=== PATIENT | male | born 1985 | race Caucasian/White ===

== ENCOUNTER 2023-03-02 11:30 | Emergency (ER) | payer OTHER ==
[2023-03-02 11:44] VITALS: BP 137/92; PULSE 96; RESP 20; TEMP 100; BMI 28.7
[2023-03-02] MEDS ORDERED: DEXAMETHASONE SOD PHOSPHATE 10 MG/1 ML VIAL PO ONE (12:45)
[2023-03-02] MEDS ORDERED: AMOXICILLIN 500 MG CAPSULE (FP) PO ONE (12:45)
[2023-03-02] MEDS ORDERED: DEXAMETHASONE SOD PHOSPHATE 10 MG/1 ML VIAL ONE (12:49)
[2023-03-02] MEDS ORDERED: AMOXICILLIN 500 MG CAPSULE (FP) ONE (12:49)
== END 2023-03-02 13:02 | disposition home or self-care (01) ==
LOC: JERFT 11:30
PROC: 3E023GC Introduction of Other Therapeutic Substance into Muscle, Percutaneous Approach (ICD-10-PCS; principal; 2023-03-02)
DX: J02.0 Streptococcal pharyngitis (principal)
CPT/HCPCS: 87651; 99284-25; J1100

== ENCOUNTER 2023-08-06 15:03 | Emergency (ER) | payer SELFPAY ==
[2023-08-06 15:14] VITALS: BP 129/90; PULSE 81; RESP 18; TEMP 99; BMI 28.7
[2023-08-06] MEDS ORDERED: FAMOTIDINE 20 MG/50 ML IVPB 20 MG/50 ML MG IVPB ONE ×2 (16:36→16:59)
[2023-08-06] MEDS ORDERED: SODIUM CHLORIDE 0.9% 500 ML INFUS.BAG IV ONE (16:36)
[2023-08-06] MEDS ORDERED: ACETAMINOPHEN 1000 MG/100 ML BAG IVPB ONE (16:37)
[2023-08-06] MEDS ORDERED: ACETAMINOPHEN INJECTION 100 ML IVPB ONE (17:05)
[2023-08-06 17:28] LABS: BASO % 0.5 % (0-2.0); EOS % 0.1 % (0-4.5); HEMATOCRIT 38.4 % (35.4-49); HEMOGLOBIN 12.6 GM/dL (11.7-16.9); LYMPH % 21.8 % (8-40); MCH 27.7 pg (25.7-33.7); MCHC 32.7 g/dl (32.0-35.9); MEAN CELL VOLUME 84.5 fl (80-96); MEAN PLT VOLUME 6.9 fl (7.5-11.1); MONO % 10.3 % (3.8-10.2); NEUT % 67.3 % (42.8-82.8); PLATELET COUNT 173 10^3/uL (134-434); RBC 4.55 M/mm3 (4.00-5.60); RDW 12.7 % (11.9-15.9); WHITE BLOOD COUNT 7.1 K/mm3 (4.0-10.0)
[2023-08-06 17:49] LABS: CALCIUM 8.4 mg/dL (8.5-10.1)
[2023-08-06 17:50] LABS: ALBUMIN 3.6 g/dl (3.4-5.0); BLOOD UREA NITROGEN 12.8 mg/dL (7-18)
[2023-08-06 17:52] LABS: CREATININE 0.9 mg/dL (0.55-1.3)
[2023-08-06 17:54] LABS: BILIRUBIN,TOTAL 0.7 mg/dL (0.2-1)
== END 2023-08-06 19:04 | disposition home or self-care (01) ==
LOC: JER 15:03
PROC: 3E033GC Introduction of Other Therapeutic Substance into Peripheral Vein, Percutaneous Approach (ICD-10-PCS; principal; 2023-08-06)
PROC: 3E033NZ Introduction of Analgesics, Hypnotics, Sedatives into Peripheral Vein, Percutaneous Approach (ICD-10-PCS; 2023-08-06)
DX: R50.9 Fever, unspecified (principal); R05.9 Cough, unspecified; R09.81 Nasal congestion; J10.1 Influenza due to other identified influenza virus with other respiratory manifestations; Z20.822 Contact with and (suspected) exposure to COVID-19
CPT/HCPCS: 0241U-QW; 36415; 80053; 83690; 85025; 99284-25

== ENCOUNTER 2024-03-11 12:19 | Emergency (ER) | payer OTHER ==
[2024-03-11 12:29] VITALS: BP 130/86; PULSE 96; RESP 20; TEMP 98.5; BMI 27.7
[2024-03-11] MEDS ORDERED: LIDOCAINE 4% PATCH TP ONE (12:56)
[2024-03-11] MEDS ORDERED: CYCLOBENZAPRINE HCL 10 MG TABLET (FP) ONE (12:57)
[2024-03-11] MEDS ORDERED: ACETAMINOPHEN 500 MG TABLET (FP) ONE (12:57)
[2024-03-11] MEDS ORDERED: IBUPROFEN 600 MG TABLET (FP) PO ONE (12:57)
[2024-03-11] MEDS: CYCLOBENZAPRINE HCL 10 MG TABLET (FP) PO ONE (13:02)
[2024-03-11] MEDS: ACETAMINOPHEN 500 MG TABLET (FP) PO ONE (13:02)
[2024-03-11] MEDS: IBUPROFEN 600 MG TABLET (FP) PO ONE (13:02)
[2024-03-11] MEDS: LIDOCAINE 4% PATCH TP ONE (13:02)
[2024-03-11] MEDS ORDERED: LIDOCAINE PATCH REMOVAL MC ONE (22:00)
== END 2024-03-11 13:42 | disposition home or self-care (01) ==
LOC: JERFT 12:19
DX: S16.1XXA Strain of muscle, fascia and tendon at neck level, initial encounter (principal); S46.912A Strain of unspecified muscle, fascia and tendon at shoulder and upper arm level, left arm, initial encounter; X50.9XXA Other and unspecified overexertion or strenuous movements or postures, initial encounter
CPT/HCPCS: 93005; 93010; 99283-25

== ENCOUNTER 2025-03-25 17:45 | Emergency (ER) | payer OTHER ==
[2025-03-25 17:50] VITALS: BMI 28.7
[2025-03-25] MEDS ORDERED: ACETAMINOPHEN INJECTION 100 ML ONE (18:29)
[2025-03-25] MEDS: SODIUM CHLORIDE 0.9% 500 ML INFUS.BAG IV ONE (18:50)
[2025-03-25] MEDS: ACETAMINOPHEN 1000 MG/100 ML BAG IVPB ONE (18:51)
[2025-03-25 18:55] LABS: ABSOLUTE IMMATURE GRANULOCYTES 0.03 x10^3/uL (0.0-0.031); BASOPHILS # 0.05 x10^3/uL (0.01-0.08); EOSINOPHIL % 1.6 % (0.8-7.0); EOSINOPHILS # 0.13 x10^3/uL (0.04-0.54); MCHC 32.5 g/dl (32.3-36.5); MEAN CELL VOLUME 85.0 fl (79.0-92.2); MEAN PLT VOLUME 8.5 fl (9.4-12.4); MONOCYTE # 0.58 x10^3/uL (0.30-0.82); MONOCYTE % 7.0 % (5.3-12.2); RDW 11.9 % (12.0-15.6)
[2025-03-25 18:56] LABS: URINE APPEARANCE CLEAR; URINE BILIRUBIN NEGATIVE (NEGATIVE); URINE COLOR YELLOW; URINE GLUCOSE (UA) NEGATIVE (NEGATIVE); URINE KETONE NEGATIVE (NEGATIVE); URINE LEUK ESTERASE NEGATIVE (NEGATIVE); URINE NITRITE NEGATIVE (NEGATIVE); URINE PROTEIN NEGATIVE (NEGATIVE); URINE UROBILINOGEN 0.2 mg/dL (0.2-1.0)
[2025-03-25 19:29] LABS: CO2 26.0 mmol/L (21-32)
[2025-03-25 19:30] LABS: GLUCOSE,RANDOM 188.0 mg/dL (74-106)
[2025-03-25 19:32] LABS: SGOT/AST 60.0 U/L (15-37); SGPT/ALT 119.0 U/L (13-61)
[2025-03-25 19:33] LABS: CREATININE 1.3 mg/dL (0.55-1.3)
[2025-03-25 19:34] LABS: TOT PROT 7.2 g/dl (6.4-8.2)
[2025-03-25 19:35] LABS: ALK PHOS 59.0 U/L (45-117)
[2025-03-25] MEDS ORDERED: MAGNESIUM 1GM/D5W - 1 GM/100 ML IVPB IVPB ONE (19:51)
[2025-03-25] MEDS ORDERED: POTASSIUM CHLORIDE ORAL LIQUID 20 MEQ/15 ML ONE (19:51)
[2025-03-25] MEDS: POTASSIUM CHLORIDE ORAL LIQUID 20 MEQ/15 ML PO ONE (19:59)
[2025-03-25] MEDS: MAGNESIUM 1GM/D5W - 1 GM/100 ML IVPB IVPB ONE (20:00)
[2025-03-25 20:57] VITALS: BP 137/87; PULSE 88; RESP 16; TEMP 97.9
[2025-03-25 23:51] LABS: HIV INTERPRETATION NEGATIVE (NEGATIVE)
[2025-03-26 20:22] LABS: HCV DIAGNOSTIC IN-HOUSE W/RFLX NON-REACTIVE (NONREACTIVE)
== END 2025-03-25 20:58 | disposition home or self-care (01) ==
LOC: JER 17:45
PROC: 3E033GC Introduction of Other Therapeutic Substance into Peripheral Vein, Percutaneous Approach (ICD-10-PCS; principal; 2025-03-25)
PROC: 3E033NZ Introduction of Analgesics, Hypnotics, Sedatives into Peripheral Vein, Percutaneous Approach (ICD-10-PCS; 2025-03-25)
DX: M54.50 Low back pain, unspecified (principal); R50.9 Fever, unspecified; R35.0 Frequency of micturition
CPT/HCPCS: 36415; 80053; 81003; 82550; 85025; 86803; 87086; 87389; 99284-25

== ENCOUNTER 2025-03-30 19:57 | Emergency (ER) | payer OTHER ==
[2025-03-30 20:07] VITALS: BMI 28.7
[2025-03-30] MEDS: LACTATED RINGERS SOLUTION 1000 ML INFUS.BAG IV ONE (22:01)
[2025-03-30 22:05] LABS: MCHC 32.3 g/dl (32.3-36.5); MEAN CELL VOLUME 86.6 fl (79.0-92.2); MEAN PLT VOLUME 8.2 fl (9.4-12.4); RDW 12.3 % (12.0-15.6)
[2025-03-30] MEDS ORDERED: KETOROLAC TROMETHAMINE 15 MG/ML VIAL ONE (22:28)
[2025-03-30] MEDS ORDERED: ACETAMINOPHEN INJECTION 100 ML ONE (22:28)
[2025-03-30] MEDS: ACETAMINOPHEN 1000 MG/100 ML BAG IVPB ONE (22:29)
[2025-03-30] MEDS: KETOROLAC TROMETHAMINE 15 MG/ML VIAL IVPUSH ONE (22:29)
[2025-03-30 22:39] LABS: CO2 30.0 mmol/L (21-32); GLUCOSE,RANDOM 124.0 mg/dL (74-106)
[2025-03-30 22:42] LABS: CREATININE 1.2 mg/dL (0.55-1.3); SGOT/AST 118.0 U/L (15-37); SGPT/ALT 291.0 U/L (13-61)
[2025-03-30 22:44] LABS: TOT PROT 7.4 g/dl (6.4-8.2)
[2025-03-30 22:45] LABS: ALK PHOS 74.0 U/L (45-117)
[2025-03-31 00:57] LABS: URINE APPEARANCE CLEAR; URINE BILIRUBIN NEGATIVE (NEGATIVE); URINE COLOR YELLOW; URINE GLUCOSE (UA) NEGATIVE (NEGATIVE); URINE KETONE NEGATIVE (NEGATIVE); URINE LEUK ESTERASE NEGATIVE (NEGATIVE); URINE NITRITE NEGATIVE (NEGATIVE); URINE PROTEIN NEGATIVE (NEGATIVE); URINE UROBILINOGEN 1.0 mg/dL (0.2-1.0)
[2025-03-31 01:46] VITALS: BP 118/78; PULSE 90; RESP 18; TEMP 98.3
== END 2025-03-31 03:33 | disposition left against medical advice (07) ==
LOC: JER 19:57 → JERFT 19:57 → JER 03-31 03:33
PROC: 3E033NZ Introduction of Analgesics, Hypnotics, Sedatives into Peripheral Vein, Percutaneous Approach (ICD-10-PCS; principal; 2025-03-30)
PROC: 3E0333Z Introduction of Anti-inflammatory into Peripheral Vein, Percutaneous Approach (ICD-10-PCS; 2025-03-30)
DX: R50.9 Fever, unspecified (principal); R00.0 Tachycardia, unspecified; M54.9 Dorsalgia, unspecified; R82.998 Other abnormal findings in urine; R68.2 Dry mouth, unspecified
CPT/HCPCS: 36415; 71260-TC; 74177-TC; 80053; 81003; 83735; 85025; 87086; 87637-QW; 99285-25; Q9967